=== PATIENT | female | born 1995 | race Two or more races ===

== ENCOUNTER 2025-05-10 18:30 | Inpatient (IN) | payer SELFPAY ==
[2025-05-10 18:33] VITALS: BP 103/55; PULSE 62; RESP 18; TEMP 36.4; O2SAT 97; BMI 39.6
--- NOTE | 2025-05-10 18:46 | XRR_ITS ---
PROCEDURE INFORMATION: Exam: XR Chest Exam date and time: 05/10/2025 6:55 PM Age: 30 years old Clinical indication: Screening exam; Other screening; Additional info: Mhe; Clearance for psych placement TECHNIQUE: Imaging protocol: Radiologic exam of the chest. Views: 1 view. COMPARISON: No relevant prior studies available. FINDINGS: Lungs: Unremarkable. No consolidation. Pleural spaces: Unremarkable. No pleural effusion. No pneumothorax. Heart/Mediastinum: Unremarkable. No cardiomegaly. Bones/joints: Unremarkable. XR/XR chest 1V portable [id number] IMPRESSION: No acute findings.
[2025-05-10 18:54] LABS: Glucose Urine UA Negative (Normal); Nitrate Urine Negative (Negative); Specific Gravity, Urine 1.017 (1.005-1.030)
[2025-05-10 18:59] LABS: Add Urine Microscopic? YES
--- NOTE | 2025-05-10 18:59 | ECG_ITS ---
[facility] Date: 2025-[facility]-11 Pat Name: David Freeman Department: Room: 153 Gender: Female Doorshaker: : 1995 Requested By: Chester Thorpe Order Number: [id number] Montano MD: Rolo Murphy M.D. Measurements Intervals [place] Rate: 54 P: 44 [place]: 152 QRS: 16 QRSD: 94 T: 18 QT: 428 QTc: 408 Interpretive Statements SINUS BRADYCARDIA WITH SINUS ARRHYTHMIA No previous ECG available for comparison Electronically Signed On 05-11-2025 16:50:25 PSS DELIVERY PROFESSIONAL by Rolo Murphy M.D. [email or web address]
[2025-05-10 19:00] VITALS: PULSE 54
[2025-05-10 19:03] LABS: PCP Screen Urine Negative (Negative)
[2025-05-10 19:11] LABS: Hematocrit 30.3 % (36-47); Hemoglobin 8.50 g/dL (11.27-16.99); Mean Corpuscular HGB Conc 28.1 g/dL (30-55); Mean Corpuscular Hemoglobin 20.8 pg (27-33); Mean Corpuscular Volume 74.3 fl (85-98); Nucleated Red Blood Cells % 0 %; Platelet Count 299 10^3/cmm (157-399); Red Blood Count 4.08 10^6/uL (3.85-5.65); White Blood Count 7.23 10^3/uL (3.29-11.43)
[2025-05-10 19:19] LABS: HCG Qualitative Urine. Negative (Negative)
[2025-05-10 19:22] LABS: Alanine Aminotransferase 34 U/L (0-33); Albumin Level 3.7 g/dL (3.5-5.2); Alkaline Phosphatase 94 U/L (35-105); Anion Gap 13.0 (5-19); Aspartate Amino Transferase 42 U/L (0-32); Blood Urea Nitrogen 14 mg/dL (6-20); Calcium 8.8 mg/dL (8.5-10.5); Carbon Dioxide 27 mmol/L (22-29); Chloride 111 mmol/L (98-107); Globulin 2.6 g/dL (1.3-4.6); Glucose 76 mg/dL (65-115); Osmolality Calculated 303 mOsm/kg (285-295); Potassium 4.0 mmol/L (3.5-5.1); Sodium 147 mmol/L (136-145); Total Protein 6.3 g/dL (6.6-8.7)
[2025-05-10 19:23] LABS: Acetaminophen < 5.0 ug/mL (10-30); Alcohol Level < 10 mg/dL (0-10); Salicylate < 0.3 mg/dL (3-10)
[2025-05-10 21:38] VITALS: BP 100/66; PULSE 63; RESP 17; TEMP 36.5; O2SAT 97
--- NOTE | 2025-05-10 21:43 | ED.C_ITS ---
HPI - Psych 2 General: Chief Complaint: Psychiatric Symptoms Stated Complaint: mhe Time Seen by Provider: 05/10/25 18:37 History of Present Illness: 30-[facility]-old [facility] with suicidal ideation, panic attack, and anxiety. Patient reports having a recent anxiety attack and what she describes as a seizure. She was hospitalized for depression approximately two weeks ago at [facility]. Patient denies current active plan to hurt herself today, though acknowledges suicidal ideation. She reports history of self-harm attempts in the past, but nothing recent. Related Data Home Medications ?Medication ?Instructions ?Recorded ?Confirmed aripiprazole 20 mg tablet (Abilify) 20 mg PO DAILY 03/2205/07/25 divalproex 250 mg tablet,delayed 250 mg PO BID 5 05/07/25 release (Depakote) hydroxyzine HCl 25 mg tablet 25 mg PO TID PRN Anxiety 05/07/25 05/07/25 venlafaxine 75 mg capsule,extended 75 mg PO DAILY 04/2805/07/25 release 24 hr (Effexor XR) Physical Exam 2 Const: COMMON NORMALS: no acute distress GENERAL APPEARANCE: cooperative; not ill appearing and not frail appearing HENMT: COMMON NORMALS: normocephalic, atraumatic and Normal external nose present HEAD & SCALP: normocephalic and atraumatic FACE & SINUS: normal facial exam and face symmetric NOSE: Normal external nose present Eye: COMMON NORMALS: Equal, round and reactive pupils present and EOMs intact bilaterally PUPIL: Yes Equal, round and reactive pupils present Neck/C-Spine: GENERAL: Yes trachea midline Chest: CHEST: Yes Symmetrical chest wall rise Resp: COMMON NORMALS: normal respiratory effort, No retractions, No use of accessory muscles and clear to auscultation bilaterally AUSCULTATION: clear to auscultation bilaterally Cardio: COMMON NORMALS: regular rate and regular rhythm RATE: regular rate RHYTHM: regular rhythm GI: COMMON NORMALS: Normal to inspection, nondistended, normoactive bowel sounds present Extremity: COMMON NORMALS: no pedal edema Neuro: DUYEN COMA SCALE: document GCS findings Duyen coma scale eye opening: Spontaneous [place]en coma scale verbal response: Orientated [place] coma scale motor response: Obey commands [place] coma scale total score: 15 S ENSORY EXAM: Yes extremities (intact) Psych: COMMON NORMALS: speech normal SPEECH: Yes normal speech Skin: COMMON NORMALS: no rashes or lesions noted GENERAL SKIN EXAM: no rashes or lesions noted Course 2 Vital Signs: Vital signs: Vital Signs Temperature 97.6 F 05/10/25 18:33 Pulse Rate 62 05/10/25 18:33 Respiratory Rate 18 05/10/25 18:33 Blood Pressure 103/55 05/10/25 18:33 Pulse Oximetry 97 05/10/25 18:33 Oxygen Delivery Me thod Room Air 05/10/25 18:33 MDM - Psych Medical Decision Making Medically the patient is stable. She is suicidal. She will go to the Neuropsych Unit. Psychiatry agrees to admission Lab Data 05/10/25 18:56 05/10/25 18:56 Radiology Impressions Chest X-Ray 05/10/25 18:46 IMPRESSION: No acute findings. Laboratory Results WBC 7.23 10^3/uL (3.29-11.43) 05/10/25 18:56 RBC 4.08 10^6/uL (3.85-5.65) 05/10/25 18:56 Hgb 8.50 g/dL (11.27-16.99) L 05/10/25 18:56 Hct 30.3 % (36-47) L 05/10/25 18:56 MCV 74.3 fl (85-98) L 05/10/25 18:56 MCH 20.8 pg (27-33) L 05/10/25 18:56 MCHC 28.1 g/dL (30-55) L 05/10/25 18:56 RDW 20.4 % (12.1-15.1) H 05/10/25 18:56 Plt Count 299 10^3/cmm (157-399) 05/10/25 18:56 MPV 9.5 fL (7.4-10.4) 05/10/25 18:56 Neut % (Auto) 65.7 % 05/10/25 18:56 Lymph % (Auto) 28.4 % 05/10/25 18:56 [place] % (Auto) 4.0 % 05/10/25 18:56 Eos % (Auto) 1.2 % 05/10/25 18:56 Baso % (Auto) 0.4 % 05/10/25 18:56 Neut # (Auto) 4.75 10^3/uL (1.8-7.7) 05/10/25 18:56 Lymph # (Auto) 2.1 10^3/uL (0.8-4.8) 05/10/25 18:56 [place] # (Auto) 0.3 10^3/uL (0.2-0.9) 05/10/25 18:56 Eos # (Auto) 0.1 10^3/uL (0.0-0.8) 05/10/25 18:56 Baso # (Auto) 0.0 10^3/uL (0.0-0.1) 05/10/25 18:56 Nucleated RBC % (auto) 0 % 05/10/25 18:56 Nucleated RBCs # 0.0 /100WBC 05/10/25 18:56 Sodium 147 mmol/L (136-145) H 05/10/25 18:56 Potassium 4.0 mmol/L (3.5-5.1) 05/10/25 18:56 Chloride 111 mmol/L (98-107) H 05/10/25 18:56 Carbon Dioxide 27 mmol/L (22-29) 05/10/25 18:56 Anion Gap 13.0 (5-19) 05/10/25 18:56 BUN 14 mg/dL (6-20) 05/10/25 18:56 Creatinine 0.8 mg/dL (0.5-0.9) 05/10/25 18:56 GFR Calculation 83.7 mL/min (90-130) L 05/10/25 18:56 Glucose 76 mg/dL (65-115) 05/10/25 18:56 Calculated Osmolality 303 mOsm/kg (285-295) H 05/10/25 18:56 Calcium 8.8 mg/dL (8.5-10.5) 05/10/25 18:56 Total Bilirubin 0.2 mg/dL (0.15-1.2) 05/10/25 18:56 AST 42 U/L (0-32) H 05/10/25 18:56 ALT 34 U/L (0-33) H 05/10/25 18:56 Alkaline Phosphatase 94 U/L (35-105) 05/10/25 18:56 Total Protein 6.3 g/dL (6.6-8.7) L 05/10/25 18:56 Albumin 3.7 g/dL (3.5-5.2) 05/10/25 18:56 Globulin 2.6 g/dL (1.3-4.6) 05/10/25 18:56 HCG, Qual Negative (Negative) 05/10/25 18:45 Urine Color Yellow (Yellow) 05/10/25 18:45 Urine Appearance Clear (CLEAR) 05/10/25 18:45 Urine pH 7.0 (5-7) 05/10/25 18:45 Ur Specific [place] 1.017 (1.005-1.030) 05/10/25 18:45 Urine Protein Negative (Negative) 05/10/25 18:45 Urine Glucose (UA) Negative (Normal) 05/10/25 18:45 Urine Ketones Negative (Negative) 05/10/25 18:45 Urine Blood 2+ (Negative) A 05/10/25 18:45 Urine Nitrate Negative (Negative) 05/10/25 18:45 Urine Bilirubin Negative (Negative) 05/10/25 18:45 Urine Urobilinogen 0.2 mg/dL (Negative) 05/10/25 18:45 Ur Leukocyte Esterase 1+ (Negative) A 05/10/25 18:45 Urine RBC 0-2 /hpf (0-2) 05/10/25 18:45 Urine WBC 21-50 /hpf (0-5) H 05/10/25 18:45 Ur Squamous Epith Cells 0-5 /hpf (0-5) 05/10/25 18:45 Amorphous Sediment Not Reportable 05/10/25 18:45 Urine Bacteria 1+ /hpf (NONE) H 05/10/25 18:45 Hyaline Casts 1.21 /lpf 05/10/25 18:45 Salicylates < 0.3 mg/dL (3-10) L 05/10/25 18:56 Urine Opiates Screen Negative ng/mL (Negative) 05/10/25 18:45 Acetaminophen < 5.0 ug/mL (10-30) L 05/10/25 18:56 Ur Barbiturates Screen Negative ng/mL (Negative) 05/10/25 18:45 Ur Phencyclidine Scrn Negative ng/mL (Negative) 05/10/25 18:45 Ur Amphetamines Screen Negative ng/mL (Negative) 05/10/25 18:45 U Benzodiazepines Scrn Negative ng/mL (Negative) 05/10/25 18:45 Urine Cocaine Screen Negative ng/mL (Negative) 05/10/25 18:45 U Marijuana (THC) Screen Negative ng/mL (Negative) 05/10/25 18:45 Ethyl Alcohol < 10 mg/dL (0-10) 05/10/25 18:56 All radiology interpretation(s) finalized by discharge Discharge Plan Discharge Patient Disposition: Admitted As Inpatient Admit Provider: Johann Carmona Clinical Impression: Suicidal ideation Condition: Stable Coding Level of Care Code ED Fine Grader for Mathew Mcdonald
[2025-05-10 22:00] VITALS: BP 100/66; PULSE 63; RESP 17; TEMP 36.5; O2SAT 97
[2025-05-11 06:00] VITALS: RESP 16
--- NOTE | 2025-05-11 12:43 | PC.NURSE ---
Patient reports that she is not taking any medication due to not being able to afford them. Allergies are verified.
[2025-05-11 12:52] LABS: Respiratory Syncytial Virus Ce NEGATIVE (Negative); SARS-CoV-2 PCR NEGATIVE (Negative)
[2025-05-11 14:00] VITALS: BP 98/62; PULSE 67; RESP 17; TEMP 36.8; O2SAT 98
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
--- NOTE | 2025-05-11 17:58 | PC.NURSE ---
Pt. refused Effexor
--- NOTE | 2025-05-11 18:12 | PC.NURSE ---
Pt. is wanting to leave AMA, is homeless, and has no ride. Pt. was told the Crisis [facility] was already closed for the evening. Pt. says he will go to the [facility]. Signee left message informing Dr. Us of what pt. is wanting to do.
--- NOTE | 2025-05-11 19:37 | PC.NURSE ---
PATIENT REQUEST AT 1830 THIS EVENING, PATIENT VOICED REQUEST TO LEAVE AMA. THE PATIENTS NURSE AT THAT TIME, AZALIA Zapata RN, ALERTED DR GARCIA OF PATIENTS REQUEST WITH NO RESPONSE RECEIVED. THIS NURSE, CALLED DR WIGGINS AT [address]ICATION[address] DR WIGGINS STATED THAT PATIENT ARRIVED TO HOSPITAL WITH SUICIDAL IDEATION, SO SHE NEEDS TO STAY ONE MORE NIGHT AND HE WOULD DISCUSS HER OPTIONS TOMORROW. THAT IF THE PATIENT INSISTED ON LEAVING TONIGHT, THEN HE WOULD PLACE THE PATIENT ON A 96 HOUR HOLD FOR HER SAFETY, WITH THE TEMPERATURES COLD THEY ARE. PATIENT AGREED TO STAY.
[2025-05-11 22:00] VITALS: RESP 16
--- NOTE | 2025-05-11 22:21 | PC.NURSE ---
pt vitals not done, pt resting, vitals will be collected when pt is awake, pt resp 16, nurse aware
[2025-05-12 06:00] VITALS: BP 92/55; PULSE 68; RESP 20; TEMP 36.3; O2SAT 100
--- NOTE | 2025-05-12 07:58 | PC.NURSE ---
Medications reconciled.
[2025-05-12] MEDS: venlafaxine ER (24HR) 75 mg Capsule PO (07:59)
--- NOTE | 2025-05-12 07:59 | PC.NURSE ---
Pt refused AM Abilify PO stating I only take Abilify at night .
[2025-05-12 13:38] VITALS: BP 92/55; PULSE 68; RESP 20; TEMP 36.3; O2SAT 100
[2025-05-12 13:59] VITALS: BP 108/62; PULSE 55; RESP 16; TEMP 36.6; O2SAT 100
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
== END 2025-05-12 14:50 | disposition home or self-care (01) | DRG 883 ==
LOC: ER 20:27 → NP 21:05
PROVIDERS: Admitting Provider Psychiatry & Neurology Psychiatry; Emergency Provider Emergency Medicine; Visit Provider Psychiatry & Neurology Psychiatry
DX: F60.3 Borderline personality disorder (principal); R45.851 Suicidal ideations; Z59.00 Homelessness unspecified; F34.1 Dysthymic disorder; F43.10 Post-traumatic stress disorder, unspecified; F44.5 Conversion disorder with seizures or convulsions
CPT/HCPCS: 36415; 71045; 80053; 80306; 80307; 81001; 81025; 85025; 87077; 87086; 87186; 87637; 93005; 97150; 97165; 99285; J9999

== ENCOUNTER 2025-05-14 00:15 | Emergency (ER) | payer SELFPAY ==
[2025-05-14 00:10] VITALS: BP 117/65; PULSE 57; RESP 17; TEMP 36.9; O2SAT 97
--- NOTE | 2025-05-14 00:20 | ECG_ITS ---
[facility]14 Pat Name: David Freeman Department: Room: Gender: Female New Media Strategist: : 1995 Requested By: Fred Beebe Order Number: [id number] Montano MD: Tenzin Borges M.D. Measurements Intervals Parker Rate: 60 P: 50 PA: 201 QRS: -7 QRSD: 92 T: 17 QT: 434 QTc: 434 Interpretive Statements SINUS RHYTHM Compared to ECG 05/11/2025 11:24:34 Sinus bradycardia no longer present Sinus arrhythmia no longer present Electronically Signed On 05-14-2025 21:39:45 BOX INSPECTOR by Tenzin Borges M.D. [email or web address]
--- NOTE | 2025-05-14 00:22 | ED_ITS ---
HPI - Seizure 2 General: Chief Complaint: Seizure Stated Complaint: possible seizure History of Present Illness: HPI Narrative: Patient is a 30-year-old female with past medical history of PNES, borderline PD, and depression who presents to the ED with seizure-like activity. For about 5 to 10 seconds, friend was concerned that she had generalized shaking while in bed and called EMS. No seizure-like activity for them, no medications given and route. Patient is currently in a [place] [facility], had a recent psychiatric admission here few days ago. She states she is compliant on her Depakote. She complains of right lower tooth pain, still able to eat and drink, no vomiting, no changes in her voice, no fevers, no severe facial swelling has not recently been on antibiotics, has not had any recent dental work. She denies any confusion but has a mild generalized headache currently. Related Data Previous Rx's ?Medication ?Instructions ?Recorded aripiprazole 20 mg tablet (Abilify) 20 mg PO DAILY 30 days #30 tabs 05/12/25 divalproex 250 mg tablet,delayed 250 mg PO BID 30 days #60 tabs 05/12/25 release (Depakote) hydroxyzine HCl 25 mg tablet 25 mg PO TID PRN Anxiety 30 days 05/12/25 #90 tabs venlafaxine 75 mg capsule,extended 75 mg PO DAILY 30 d ays #30 caps 05/12/25 release 24 hr (Effexor XR) chlorhexidine gluconate 0.12 % 15 ml buccal DAILY #473 mL 05/14/25 mouthwash (Peridex) penicillin V potassium 500 mg 500 mg PO Q12H #14 tabs 05/14/25 tablet Allergies Allergy/AdvReac Type Severity Reaction Status Date / Time codeine Allergy ADR-Vomitin Verified 05/11/25 12:02 g lithium Allergy aggression Verified 05/11/25 11:51 Review of Systems 2 General: Reports: 10 or more systems reviewed and unremarkable except in HPI and below ENMT: Reports: dental pain Neuro: Reports: headache(s) and seizure-like activity Physical Exam 2 Narrative: EXAM NARRATIVE: Patient well-appearing, no signs of trauma, afebrile, vital signs stable on arrival. Does not appear postictal, GCS 15, PERRL, EOMI, no nystagmus, 5 out of 5 motor and sensation in all 4 extremities, no tongue biting, no incontinence. Tooth in question is right lower molar, no fluctuance but obvious cavity, no severe facial swelling, no pooling of secretions, airway widely patent, no cervical lymphadenopathy. Breathing comfortably on room air, saturating well, abdomen soft, nontender, nondistended, normal sinus rhythm with no murmurs, no leg swelling. Course 2 Vital Signs: Vital signs: Vital Signs Temperature 98.4 F 05/14/25 00:10 Pulse Rate 58 L 05/14/25 01:35 Respiratory Rate 17 05/14/25 00:10 Blood Pressure 107/66 05/14/25 01:35 Pulse Oximetry 92 05/14/25 01:35 Oxygen Delivery Me thod Room Air 05/14/25 00:58 MDM - Seizure MDM Narrative Medical decision making narrative: -ddx: Seizure, PNES, personality disorder, tension headache, migraine, anxiety, depression, dental cavity, abscess, dehydration, electrolyte abnormality -Patient arrives GCS 15, mildly fatigued but neuro intact and not postictal at this time, vital stable. Was at most 10-second witnessed episode by friend. She is on Depakote and has taken her doses recently. She has a mild headache at this time, also endorses some right lower tooth pain which clinically looks like a cavity, has not had recent dental work, no fevers, facial swelling, difficulty swallowing or breathing, will start her on 7-day course of penicillin and Peridex for this. No further seizure activity while in the ED. Patient improved with Tylenol, her CK was very mildly elevated at 1000 but she did not have any creatinine elevation, she was given a liter of fluids and encouraged further hydration to prevent rhabdo and stressed its importance. She was then deemed stable to be discharged home with instructions to follow-up with a dentist when able for possible extraction, discharged in stable condition. Lab Data 05/14/25 00:29 05/14/25 00:29 Labs: Laboratory Results WBC 7.11 10^3/uL (3.29-11.43) 05/14/25: RBC 4.34 10^6/uL (3.85-5.65) 05/14/25:29 Hgb 8.90 g/dL (11.27-16.99) L 05/14/25: Hct 31.4 % (36-47) L 05/14/25: MCV 72.4 fl (85-98) L 05/14/25: MCH 20.5 pg (27-33) L 05/14/25 MCHC 28.3 g/dL (30-55) L 05/14/25 RDW 20.2 % (12.1-15.1) H 05/14/25 Plt Count 310 10^3/cmm (157-399) 05/14/25: MPV 9.7 fL (7.4-10.4) 05/14/25 Neut % (Auto) 54.7 % 05/14/25: Lymph % (Auto) 39.4 % 05/14/25: [place] % (Auto) 4.5 % 05/14/25 Eos % (Auto) 1.0 % 05/14/25 Baso % (Auto) 0.3 % 05/14/25 Neut # (Auto) 3.89 10^3/uL (1.8-7.7) 05/14/25 Lymph # (Auto) 2.8 10^3/uL (0.8-4.8) 05/14/25: [place] # (Auto) 0.3 10^3/uL (0.2-0.9) 05/14/25 Eos # (Auto) 0.1 10^3/uL (0.0-0.8) 05/14/25 Baso # (Auto) 0.0 10^3/uL (0.0-0.1) 05/14/25: Nucleated RBC % (auto) 0 % 05/14/25 Nucleated RBCs # 0.0 /100WBC 05/14/25 Sodium 145 mmol/L (136-145) 05/14/25: Potassium 3.8 mmol/L (3.5-5.1) 05/14/25 Chloride 107 mmol/L (98-107) 05/14/25 Carbon Dioxide 29 mmol/L (22-29) 05/14/25: Anion Gap 12.8 (5-19) 05/14/25: BUN 11 mg/dL (6-20) 05/14/25: Creatinine 0.8 mg/dL (0.5-0.9) 05/14/25 GFR Calculation 83.7 mL/min (90-130) L 05/14/25: Glucose 85 mg/dL (65-115) 05/14/25: Calculated Osmolality 299 mOsm/kg (285-295) H 05/14/25 Lactic Acid 0.7 mmol/L (0.5-2.2) 05/14/25: Calcium 9.0 mg/dL (8.5-10.5) 05/14/25: Phosphorus 4.1 mg/dL (2.5-4.5) 05/14/25: Magnesium 2.2 mg/dL (1.7-2.3) 05/14/25: Total Bilirubin 0.2 mg/dL (0.15-1.2) 05/14/25: AST 47 U/L (0-32) H 05/14/25: ALT 39 U/L (0-33) H 05/14/25: Alkaline Phosphatase 92 U/L (35-105) 05/14/25: Creatine Kinase 1139 U/L (26-192) H* 05/14/25 00: Total Protein 6.6 g/dL (6.6-8.7) 05/14/25: Albumin 4.1 g/dL (3.5-5.2) 05/14/25: Globulin 2.5 g/dL (1.3-4.6) 05/14/25 00: HCG, Qual Negative (Negative) 05/14/25: No radiology studies performed this visit Discharge Plan Discharge Patient Disposition: Home Clinical Impression: Seizure-like activity, Dental infection Condition: Stable Prescriptions: New chlorhexidine gluconate [Peridex] 0.12 % mouthwash 15 ml buccal DAILY Qty: 473 0RF penicillin V potassium 500 mg tablet 500 mg PO Q12H Qty: 14 0RF No Action venlafaxine [Effexor XR] 75 mg Capsule,Extended Release 24hr 75 mg PO DAILY 30 Days Qty: 30 2RF divalproex [Depakote] 250 mg Tablet,Delayed Release (Dr/Ec) 250 mg PO BID 30 Days Qty: 60 1RF hydroxyzine HCl 25 mg Tablet 25 mg PO TID PRN (Reason: Anxiety) 30 Days Qty: 90 1RF aripiprazole [Abilify] 20 mg Tablet 20 mg PO DAILY 30 Days Qty: 30 1RF Discharge Orders: Discharge ED (Routine); Ordered 05/14/25 Ordered By: Fred Beebe Referrals: Juarez Key MD [Primary Care Provider, [facility]] Discharge Diet: Advance as tolerated Discharge Activity: Resume usual activity Patient Instructions: Opioid Safety, Pain Management, Patient Portal & Jihan Instructions Activity Restrictions/Additional Instructions: You were seen after your seizure, you were evaluated with labs that were ultimately reassuring, your headache improved with Tylenol and fluids and you were started on antibiotics for your tooth infection which possibly lowered your seizure threshold. To treat the infection, take the penicillin 500 mg every 12 hours for a total of 7 days, take this with food if possible. In addition, use the prescription grade mouthwash at least twice a day to help clean and numb the area. Alternate Tylenol 650 mg and ibuprofen 400 mg every 4 hours as needed for pain and fevers, ensure you follow-up with the dentist for further management of this tooth. Do not drive until you follow-up with your neurologist and rediscuss your seizure medications. Return to the ED with recurring seizures that lasts over 2 minutes, severe worsening of your dental pain, a large amount of facial swelling, fevers that do not improve with Tylenol, any other emergent concerns. Print Language: Nepalese Coding Level of Care Code ED Professor In Family Studies for Mathew Mcdonald
[2025-05-14 00:45] LABS: Hematocrit 31.4 % (36-47); Hemoglobin 8.90 g/dL (11.27-16.99); Mean Corpuscular HGB Conc 28.3 g/dL (30-55); Mean Corpuscular Hemoglobin 20.5 pg (27-33); Mean Corpuscular Volume 72.4 fl (85-98); Nucleated Red Blood Cells % 0 %; Platelet Count 310 10^3/cmm (157-399); Red Blood Count 4.34 10^6/uL (3.85-5.65); White Blood Count 7.11 10^3/uL (3.29-11.43)
[2025-05-14 00:52] LABS: HCG, Serum Qual Negative (Negative)
[2025-05-14 00:58] VITALS: BP 101/68; PULSE 63; O2SAT 96
[2025-05-14 01:09] LABS: Alanine Aminotransferase 39 U/L (0-33); Albumin Level 4.1 g/dL (3.5-5.2); Alkaline Phosphatase 92 U/L (35-105); Chloride 107 mmol/L (98-107); Potassium 3.8 mmol/L (3.5-5.1); Sodium 145 mmol/L (136-145)
[2025-05-14 01:10] LABS: Lactic Sepsis W/Reflex 0.7 mmol/L (0.5-2.2)
[2025-05-14 01:25] LABS: Anion Gap 12.8 (5-19); Aspartate Amino Transferase 47 U/L (0-32); Blood Urea Nitrogen 11 mg/dL (6-20); Calcium 9.0 mg/dL (8.5-10.5); Carbon Dioxide 29 mmol/L (22-29); Globulin 2.5 g/dL (1.3-4.6); Glucose 85 mg/dL (65-115); Magnesium 2.2 mg/dL (1.7-2.3); Osmolality Calculated 299 mOsm/kg (285-295); Total Protein 6.6 g/dL (6.6-8.7)
[2025-05-14 01:35] VITALS: BP 107/66; PULSE 58; O2SAT 92
[2025-05-14 03:14] VITALS: BP 117/71; PULSE 53; O2SAT 98
[2025-05-14 03:55] VITALS: BP 102/59; PULSE 52; O2SAT 93
== END 2025-05-14 03:57 | disposition home or self-care (01) ==
PROVIDERS: Emergency Provider Student in an Organized Health Care Education/Training Program; PCP Family Medicine
DX: R56.9 Unspecified convulsions (principal); K04.7 Periapical abscess without sinus
CPT/HCPCS: 80053; 82550; 83605; 83735; 84100; 84703; 85025; 93005; 99284; J7030; J9999

== ENCOUNTER 2025-05-14 22:27 | Inpatient (IN) | payer SELFPAY ==
[2025-05-14 22:37] VITALS: BP 112/58; PULSE 72; RESP 17; TEMP 36.4; O2SAT 99; BMI 39.6
--- NOTE | 2025-05-14 23:20 | ED_ITS ---
HPI - Dizziness 2 General: Chief Complaint: Dizziness Stated Complaint: dizziness Time Seen by Provider: 05/14/25 22:32 History of Present Illness: HPI Narrative: Patient is a 30-year-old female with a past medical history of PNES, depression who originally presented for dizziness and lightheadedness. On my examination, she denies any event and endorses suicidal ideation, takes Effexor and Depakote, has been taking this but states she has had intrusive thoughts, states she has not been alone all day and so could not take any action but has had prior suicidal attempts where she tried to overdose on medications. Denies any wrist cutting, other self-harm at this time. Other than mental health concerns, she currently denies any symptoms. Related Data Previous Rx's ?Medication ?Instructions ?Recorded aripiprazole 20 mg tablet (Abilify) 20 mg PO DAILY 30 days #30 tabs 05/12/25 divalproex 250 mg tablet,delayed 250 mg PO BID 30 days #60 tabs 05/12/25 release (Depakote) hydroxyzine HCl 25 mg tablet 25 mg PO TID PRN Anxiety 30 days 05/12/25 #90 tabs venlafaxine 75 mg capsule,extended 75 mg PO DAILY 30 d ays #30 caps 05/12/25 release 24 hr (Effexor XR) chlorhexidine gluconate 0.12 % 15 ml buccal DAILY #473 mL 05/14/25 mouthwash (Peridex) penicillin V potassium 500 mg 500 mg PO Q12H #14 tabs 05/14/25 tablet Allergies Allergy/AdvReac Type Severity Reaction Status Date / Time codeine Allergy ADR-Vomitin Verified 05/11/25 12:02 g lithium Allergy aggression Verified 05/11/25 11:51 Review of Systems 2 General: Reports: 10 or more systems reviewed and unremarkable except in HPI and below Card: Reports: lightheadedness Psych: Reports: suicidal ideation Physical Exam 2 Narrative: EXAM NARRATIVE: Patient overall well appearing, afebrile, no acute distress, vital stable on arrival. Flat affect, seemingly passive suicidal ideation, does not seem to be responding to internal stimuli at this time. GCS 15, able to answer questions appropriately and follow commands, symmetrically moving all 4 extremities. Anisocoria (baseline). Breathing comfortably on room air, saturating well, abdomen soft, nontender, nondistended, normal sinus rhythm with no murmurs, no leg swelling, good cap refill. Course 2 Vital Signs: Vital signs: Vital Signs Temperature 97.6 F 05/14/25 22:37 Pulse Rate 67 05/15/25 00:11 Respiratory Rate 18 05/15/25 00:11 Blood Pressure 114/73 05/15/25 00:11 Pulse Oximetry 97 05/15/25 00:11 Oxygen Delivery Me thod Room Air 05/15/25 00:11 MDM - Dizziness Medical Decision Making -ddx: Depression, suicidal ideation, PNES, malingering, adjustment disorder, depression - Patient arrives having changed chief complaint on my evaluation, I saw her yesterday for a most likely pseudoseizure, and was ultimately discharged with amoxicillin for a potential dental cavity, states her tooth pain is doing better and has not been able to coal picker the medication yet. She is on Effexor and Depakote, has been taking her normal doses of this, endorses some suicidal ideation, has had prior suicidal attempts in the past, no concerns for self-harm today, no signs of traumatic injury, will get basic screening labs and plan to admit to psychiatry. - Medical clearance labs are reassuring with no evidence of acute ingestion, clinical status remained stable. Slightly elevated CK at 900 which was overall decreased from yesterday, provided p.o. fluids to help with this, no creatinine elevation,, no blood on UA and less concern for rhabdo. Had a mild amount of inflammatory cells in her urine but with no symptoms, no bacteria and no SIRS criteria will not treat this as a cystitis at this time. Patient then admitted to psychiatry for ultimate mental health stabilization, admitted in stable condition. Lab Data 05/14/25 23:21 05/14/25 23:21 Laboratory Results WBC 6.51 10^3/uL (3.29-11.43) 05/14/25 23:21 RBC 4.26 10^6/uL (3.85-5.65) 05/14/25 23:21 Hgb 8.70 g/dL (11.27-16.99) L 05/14/25 23:21 Hct 30.7 % (36-47) L 05/14/25 23:21 MCV 72.1 fl (85-98) L 05/14/25 23:21 MCH 20.4 pg (27-33) L 05/14/25 23:21 MCHC 28.3 g/dL (30-55) L 05/14/25 23:21 RDW 19.9 % (12.1-15.1) H 05/14/25 23:21 Plt Count 282 10^3/cmm (157-399) 05/14/25 23:21 MPV 9.9 fL (7.4-10.4) 05/14/25 23:21 Neut % (Auto) 59.0 % 05/14/25 23:21 Lymph % (Auto) 33.9 % 05/14/25 23:21 Cameron % (Auto) 5.1 % 05/14/25 23:21 Eos % (Auto) 1.4 % 05/14/25 23:21 Baso % (Auto) 0.3 % 05/14/25 23:21 Neut # (Auto) 3.84 10^3/uL (1.8-7.7) 05/14/25 23:21 Lymph # (Auto) 2.2 10^3/uL (0.8-4.8) 05/14/25 23:21 Cameron # (Auto) 0.3 10^3/uL (0.2-0.9) 05/14/25 23:21 Eos # (Auto) 0.1 10^3/uL (0.0-0.8) 05/14/25 23:21 Baso # (Auto) 0.0 10^3/uL (0.0-0.1) 05/14/25 23:21 Nucleated RBC % (auto) 0 % 05/14/25 23:21 Nucleated RBCs # 0.0 /100WBC 05/14/25 23:21 Sodium 145 mmol/L (136-145) 05/14/25 23:21 Potassium 4.0 mmol/L (3.5-5.1) 05/14/25 23:21 Chloride 109 mmol/L (98-107) H 05/14/25 23:21 Carbon Dioxide 29 mmol/L (22-29) 05/14/25 23:21 Anion Gap 11.0 (5-19) 05/14/25 23:21 BUN 11 mg/dL (6-20) 05/14/25 23:21 Creatinine 0.7 mg/dL (0.5-0.9) 05/14/25 23:21 GFR Calculation 97.6 mL/min (90-130) 05/14/25 23:21 Glucose 95 mg/dL (65-115) 05/14/25 23:21 Calculated Osmolality 299 mOsm/kg (285-295) H 05/14/25 23:21 Calcium 9.1 mg/dL (8.5-10.5) 05/14/25 23:21 Total Bilirubin 0.2 mg/dL (0.15-1.2) 05/14/25 23:21 AST 39 U/L (0-32) H 05/14/25 23:21 ALT 31 U/L (0-33) 05/14/25 23:21 Alkaline Phosphatase 82 U/L (35-105) 05/14/25 23:21 Creatine Kinase 896 U/L (26-192) H* 05/14/25 23:21 Total Protein 6.3 g/dL (6.6-8.7) L 05/14/25 23:21 Albumin 3.8 g/dL (3.5-5.2) 05/14/25 23:21 Globulin 2.5 g/dL (1.3-4.6) 05/14/25 23:21 HCG, Qual Negative (Negative) 05/14/25 23: Urine Color Yellow (Yellow) 05/14/25 23:23 Urine Appearance Clear (CLEAR) 05/14/25 23:23 Urine pH 5.5 (5-7) 05/14/25 23:23 Ur Specific Bogart 1.020 (1.005-1.030) 05/14/25 23:23 Urine Protein Negative (Negative) 05/14/25 23:23 Urine Glucose (UA) Negative (Normal) 05/14/25 23: Urine Ketones Negative (Negative) 05/14/25 23: Urine Blood Negative (Negative) 05/14/25 23: Urine Nitrate Negative (Negative) 05/14/25 23:23 Urine Bilirubin Negative (Negative) 05/14/25 23:23 Urine Urobilinogen 0.2 mg/dL (Negative) 05/14/25 23:23 Ur Leukocyte Esterase 1+ (Negative) A 05/14/25 23: Urine RBC 0-2 /hpf (0-2) 12/17/25 23:23 Urine WBC 21-50 /hpf (0-5) H 05/14/25 23:23 Ur Squamous Epith Cells 0-5 /hpf (0-5) 05/14/25 23:23 Amorphous Sediment Not Reportable 05/14/25 23:23 Urine Bacteria Trace /hpf (NONE) 05/14/25 23:23 Hyaline Casts 0.40 /lpf 05/14/25 23:23 Salicylates < 0.3 mg/dL (3-10) L 05/14/25 23:21 Urine Opiates Screen Negative ng/mL (Negative) 05/14/25 23:23 Acetaminophen < 5.0 ug/mL (10-30) L 05/14/25 23:21 Ur Barbiturates Screen Negative ng/mL (Negative) 05/14/25 23:23 Ur Phencyclidine Scrn Negative ng/mL (Negative) 05/14/25 23:23 Ur Amphetamines Screen Negative ng/mL (Negative) 05/14/25 23:23 U Benzodiazepines Scrn Negative ng/mL (Negative) 05/14/25 23:23 Urine Cocaine Screen Negative ng/mL (Negative) 05/14/25 23:23 U Marijuana (THC) Screen Negative ng/mL (Negative) 05/14/25 23:23 Ethyl Alcohol < 10 mg/dL (0-10) 05/14/25 23:21 No radiology studies performed this visit Discharge Plan Discharge Condition: Stable Prescriptions: No Action venlafaxine [Effexor XR] 75 mg Capsule,Extended Release 24hr 75 mg PO DAILY 30 Days Qty: 30 2RF divalproex [Depakote] 250 mg Tablet,Delayed Release (Dr/Ec) 250 mg PO BID 30 Days Qty: 60 1RF hydroxyzine HCl 25 mg Tablet 25 mg PO TID PRN (Reason: Anxiety) 30 Days Qty: 90 1RF aripiprazole [Abilify] 20 mg Tablet 20 mg PO DAILY 30 Days Qty: 30 1RF chlorhexidine gluconate [Peridex] 0.12 % mouthwash 15 ml buccal DAILY Qty: 473 0RF penicillin V potassium 500 mg tablet 500 mg PO Q12H Qty: 14 0RF Referrals: Juarez Key MD [Primary Care Provider, Family Practice] Print Language: Danish Coding Level of Care Code ED Manufacturing Design Engineer for Chg Fwd
--- NOTE | 2025-05-14 23:24 | ECG_ITS ---
Tutor Assignment Test Date: 2025-05-14 Pat Name: David Freeman Department: Room: Gender: Female Silver Steward: : 1995 Requested By: Fred Beebe Order Number: [id number] Charmaine MD: YOLANDE WILSON Measurements Intervals [place] Rate: 66 P: 38 CO: 190 QRS: -15 QRSD: 91 T: 13 QT: 410 QTc: 433 Interpretive Statements SINUS RHYTHM MINIMAL VOLTAGE CRITERIA FOR LVH, CONSIDER NORMAL VARIANT [MEETS CRITERIA IN ONE OF: R(aVL), S(V1), R(V5), R(V5/V6)+S(V1)] Compared to ECG 05/14/2025 00:17:05 No significant changes Electronically Signed On 05-21-2025 20:32:15 ROAD ROLLER OPERATOR by YOLANDE WILSON [email or web address]
[2025-05-14 23:39] LABS: Hematocrit 30.7 % (36-47); Hemoglobin 8.70 g/dL (11.27-16.99); Mean Corpuscular HGB Conc 28.3 g/dL (30-55); Mean Corpuscular Hemoglobin 20.4 pg (27-33); Mean Corpuscular Volume 72.1 fl (85-98); Nucleated Red Blood Cells % 0 %; Platelet Count 282 10^3/cmm (157-399); Red Blood Count 4.26 10^6/uL (3.85-5.65); White Blood Count 6.51 10^3/uL (3.29-11.43)
[2025-05-14 23:45] LABS: HCG, Serum Qual Negative (Negative)
[2025-05-14 23:50] LABS: Alanine Aminotransferase 31 U/L (0-33); Albumin Level 3.8 g/dL (3.5-5.2); Alkaline Phosphatase 82 U/L (35-105); Anion Gap 11.0 (5-19); Aspartate Amino Transferase 39 U/L (0-32); Blood Urea Nitrogen 11 mg/dL (6-20); Calcium 9.1 mg/dL (8.5-10.5); Carbon Dioxide 29 mmol/L (22-29); Chloride 109 mmol/L (98-107); Globulin 2.5 g/dL (1.3-4.6); Glucose 95 mg/dL (65-115); Osmolality Calculated 299 mOsm/kg (285-295); Potassium 4.0 mmol/L (3.5-5.1); Sodium 145 mmol/L (136-145); Total Protein 6.3 g/dL (6.6-8.7)
[2025-05-14 23:51] LABS: Acetaminophen < 5.0 ug/mL (10-30); Alcohol Level < 10 mg/dL (0-10); Salicylate < 0.3 mg/dL (3-10)
[2025-05-14 23:57] LABS: Glucose Urine UA Negative (Normal); Nitrate Urine Negative (Negative); Specific Gravity, Urine 1.020 (1.005-1.030)
[2025-05-15 00:02] LABS: Add Urine Microscopic? YES
[2025-05-15 00:03] LABS: PCP Screen Urine Negative (Negative)
[2025-05-15 00:11] VITALS: BP 114/73; PULSE 67; RESP 18; O2SAT 97
--- NOTE | 2025-05-15 01:47 | PC.NURSE ---
96 Hour Involuntary Hold Patient Rights have been reviewed with the patient and a copy of the same has been provided to her. Die Cast Engineer Crow Paredes was present at bedside during the presentation of Rights.
[2025-05-15 02:10] VITALS: BP 116/70; PULSE 71; O2SAT 98
[2025-05-15 02:21] VITALS: BP 101/58; PULSE 56; RESP 17; TEMP 36.5; O2SAT 99
--- NOTE | 2025-05-15 02:55 | PC.ADMIT ---
[id number] Admission Note: The patient,David Freeman,30 y/o, was given written information regarding hospital policies, unit procedures and contact persons. Patient's smoking status: . Vital Signs - 8 hr 05/14/25 22:37 05/15/25 00:11 05/15/25 02:10 Temperature 97.6 F Pulse Rate 72 67 71 Respiratory Rate 17 18 Blood Pressure 112/58 114/73 116/70 Pulse Oximetry 99 97 98 Oxygen Delivery Method Room Air Room Air 05/15/25 02:18 05/15/25 02:21 Temperature 97.7 F Pulse Rate 56 L Respiratory Rate 17 Blood Pressure 101/58 Pulse Oximetry 99 Oxygen Delivery Method Room Air Room Air No skin issues, pt was calm and cooperative.
--- NOTE | 2025-05-15 06:16 | PC.NURSE ---
vitals vs not collected pt resting in bed with both eyes closed nurse notified resp 16
[2025-05-15] MEDS: venlafaxine ER (24HR) 75 mg Capsule PO (12:16)
[2025-05-15 14:00] VITALS: BP 119/72; PULSE 74; RESP 18; TEMP 36.7; O2SAT 100
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
--- NOTE | 2025-05-15 17:32 | PC.NURSE ---
pt wanting to leave, requesting for this marine underwriter to call dr. madison to let her go home when informed that doctor will be here tomorrow and she will be able to request to go home at that time. pt stated well you better move me to the acute side because I want out of here. pt instructed to keep calm and wait to speak with doctor in the morning is her best chance of leaving before her 96 hour hold is up. pt given zyprexia for agitation and anxiety.
[2025-05-15 20:45] VITALS: BP 102/61; PULSE 64; RESP 18; TEMP 36.4; O2SAT 90
[2025-05-16 06:00] VITALS: RESP 14
--- NOTE | 2025-05-16 06:32 | PC.NURSE ---
pt vitals not done, resp 14, pt asleep in bed, nurse aware
[2025-05-16] MEDS: venlafaxine ER (24HR) 37.5 mg Capsule 112.5 MG PO (07:42)
[2025-05-16 12:43] VITALS: BP 93/55; PULSE 71; RESP 18; O2SAT 98
--- NOTE | 2025-05-16 14:05 | P.NPUPN_ITS ---
Subjective NPU 2 Subjective: 30-year-old trans male with borderline p ersonality disorder, pseudoseizures admitted with suicidal ideation complaints of dizziness. The patient had a brief episode of a staring spell today where he was standing and staring off into space. He did appear to come out of the episode later in the day. Earlier, he had stated that she felt ready to go home to [facility] but also at the same time stated that he wished to go to [place]. He had reported that he had moved around from multiple places before in the past. He had reported that she needed to be better understood regarding his issues and stated that he may like to go to [place] to receive further help as he had previously lost his ability to stay at various shelters or homes over the past several years. He had reported that he continued to use hydroxyzine for helping with anxiety. He was unable to explain why he e had felt anxious here but stated that he frequently struggled with remaining in 1 place for any extended period of time. He had described having previously engaged in self sabotage to often ruin good things in his life. Mental Status Exam 2 MSE Comments: 30 year old trans male who was alert an d oriented to person, place, time, and situation. His gait appeared within normal limits. His hygiene was poor. There was no evidence of any abnormal involuntary motor movements tics or tremors appreciated. His speech was normal in regards to rate rhythm and prosody. His mood was described as depressed. His affect was odd and subdued. His thought process was linear, logical, and goal-directed. His thought content showed no evidence of homicidal ideation. He endorsed suicidal ideation with no active plan. There was no evidence of any delusional thinking. He did not appear to be responding to internal stimuli. His attention span was fair. His insight was limited. His judgment is poor. His impulse control appeared limited. His attention span appeared adequate. His recent and remote memory were grossly intact. Vitals/I&O/Wt Last Vital Signs Temp 97.6 F 05/15/25 20:45 Pulse 71 05/16/25 12:43 Resp 18 05/16/25 12:43 BP 93/55 05/16/25 12:43 Pulse Ox 98 05/16/25 12:43 O2 Del Method Room Air 05/16/25 12:43 Weight last 48 hrs Weight 95.254 kg Data NPU 05/14/25 23:21 05/14/25 23:21 Micro: Microbiology 05/14/25 23:23 Urine Culture - Preliminary Urine,Clean Catch Gram Negative Rods Microbiology 05/14/25 23:23 Urine,Clean Catch Urine Culture - Preliminary Gram Negative Rods A&P Assessment and plan 1. Dysthymia: 2. Suicidal ideation: 3. PTSD (post-traumatic stress disorder): 4. Functional neurological symptom disorder with attacks or seizures: 5. Borderline personality disorder: Plan: 30-year-old trans male admitted with depression with recent discharge from inpatient unit a few days ago with reported history of PTSD currently endorsing suicidal ideation. #1.? Engage patient in individual, milieu and group therapy. #2?? Restart outpatient psychiatric medications. Continue depakote at 500mg bid. Continue Abilify 20mg daily. Increase effexor xr 150mg daily. #3???TO-15 minute checks? #4.?? Will attempt to gather collateral information including previous records. PDMP PDMP Reviewed: Not Reviewed Involuntary Hold Information 2 Hold Status: Legal Status: 96 Hour Hold Date/Time Hold Expires: 05/21/25 Attestations NPU 2 Medical Necessity Statement*: Inpatient hospitalization is medically necessary and deemed to be the clinically appropriate intervention at this time. Medications will be initiated and adjusted accordingly.?? The patient?s likely length of stay is 3-5 days.? Coding Level of Care Code Acute Code for [facility] Diagnoses Dysthymia F34.1 Suicidal ideation R45.851 PTSD (post-traumatic stress disorder) F43.10 Functional neurological symptom disorder with attacks or seizures F44.5 Borderline personality disorder F60.3
--- NOTE | 2025-05-16 14:32 | PC.NURSE ---
Another pt came up to nurses station from group and stated to staff that this pt was having a silent seizure . Pt was assessed and VS were WNL - see chart & pupils were reactive. Pt came out of seizure and was talking to staff / moving. Pt was offered help to room to lay down but pt refused, wanting to remain in group. Dr. Us notified.
[2025-05-16 14:33] VITALS: BP 125/74; PULSE 68; RESP 16; O2SAT 100
[2025-05-16 20:13] VITALS: BP 113/73; PULSE 89; RESP 19; TEMP 36.7; O2SAT 98
--- NOTE | 2025-05-16 22:06 | PC.NURSE ---
193 Behavioral issues escalating, patient keeps summoning nursing with challenging words such as I need to move to the other side for your safety . When asked what is meant, the reply is that I don't feel safe over here like I do on the other side . It is noted that this has been an ongoing difficulty during day time, of which physician is aware. Patient continues to hover near nursing et refuses anti-anxiety medication et when nsg attempts to redirect/ console, it is interrupted by diagreement from patient. Colaboration with charge nurse et physician brings patient to agree to oral medications B52 . 1940 While charge nurse is obtaining order for above, patient slowly,dramatically puts herself to floor, whereas another patient intervenes et assists her to the floor to prevent injury et calls out for help. Staff is already present to assist, patient then begins to dramatically shake her body et argue with staff simultaneously who is witnessing behaviors that I don't fake seizures . Patient begins saying it was just a panic attack , et I panic because I need to move to the other side , et that her eye is bothering her and caused the panic attack . Patient is able to sit up et vital signs obtained, WNL, et then moves to sit upon bench for medications. She then begins to say she won't take any medication, et after further guidance from this nurse, takes them. She asks frequently will taking the medications make her stay here longer, because I want to leav right now and I have a ride and place to go . Charge nurse explains to her the options et reinforces that she is not going anywhere tonight, et she eventually takes snacks et goes into the dayroom to watch TV. Nursing continues to monitor for needs et changes.
[2025-05-17 06:00] VITALS: RESP 16
--- NOTE | 2025-05-17 06:36 | PC.NURSE ---
vs not collected pt sleeping soundly, nurse notified, resp 16
[2025-05-17] MEDS: venlafaxine ER (24HR) 37.5 mg Capsule 112.5 MG PO (07:49)
--- NOTE | 2025-05-17 11:24 | P.NPUPN_ITS ---
Subjective NPU 2 Subjective: 30-year-old trans male with borderline p ersonality disorder, pseudoseizures admitted with suicidal ideation complaints of dizziness. The patient had reported having some episodes of having a seizure that was interrupted by the patient making comments in the midst of 1 of these episodes. He reported that he was feeling better and wished to be placed off of a hold. He stated that she would be okay with going to [facility]. [facility] was contacted and the patient did not have availability until Monday to go there. He reported having continued problems with anxiety. He reported no side effects from the increase in the Effexor XR. The patient had no side effects from his medications. He had minimized any pain in her tooth currently. Mental Status Exam 2 MSE Comments: 30 year old trans male who was alert an d oriented to person, place, time, and situation. His gait appeared within normal limits. His hygiene was poor. There was no evidence of any abnormal involuntary motor movements tics or tremors appreciated. His speech was normal in regards to rate rhythm and prosody. His mood was described as depressed. His affect was odd and subdued. His thought process was linear, logical, and goal-directed. His thought content showed no evidence of homicidal ideation. He denied suicidal ideation with no active plan. There was no evidence of any delusional thinking. He did not appear to be responding to internal stimuli. His attention span was fair. His insight was limited. His judgment is poor. His impulse control appeared limited. His attention span appeared adequate. His recent and remote memory were grossly intact. Vitals/I&O/Wt Last Vital Signs Temp 98.0 F 05/16/25 20:13 Pulse 89 05/16/25 20:13 Resp 16 05/17/25 06:00 BP 113/73 05/16/25 20:13 Pulse Ox 98 05/16/25 20:13 O2 Del Method Room Air 05/16/25 20:13 Data NPU 05/14/25 23:21 05/14/25 23:21 Micro: Microbiology 05/14/25 23:23 Urine Culture - Preliminary Urine,Clean Catch Gram Negative Rods Microbiology 05/14/25 23:23 Urine,Clean Catch Urine Culture - Preliminary Gram Negative Rods A&P Assessment and plan 1. Dysthymia: 2. Suicidal ideation: 3. PTSD (post-traumatic stress disorder): 4. Functional neurological symptom disorder with attacks or seizures: 5. Borderline personality disorder: Plan: 30-year-old trans male admitted with depression with recent discharge from inpatient unit a few days ago with reported history of PTSD currently endorsing suicidal ideation. #1.? Engage patient in individual, milieu and group therapy. #2?? Restart outpatient psychiatric medications. Continue depakote at 500mg bid. Continue Abilify 20mg daily. Continue effexor xr 150mg daily. Urine sensitivity showed positive for Ecoli with resistance to ampicillin. D/C Penicillin and begin Cefdinir 500mg bid x10 days. #3???TO-15 minute checks? #4.?? Will attempt to gather collateral information including previous records. #5 Iron studies and CRP-patient has microcytic anemia. PDMP PDMP Reviewed: Not Reviewed Involuntary Hold Information 2 Hold Status: Legal Status: 96 Hour Hold Date/Time Hold Expires: 05/21/25 Attestations NPU 2 Medical Necessity Statement*: Inpatient hospitalization is medically necessary and deemed to be the clinically appropriate intervention at this time. Medications will be initiated and adjusted accordingly.?? The patient?s likely length of stay is 3-5 days.? Coding Level of Care Code Acute Code for [facility] Fwd Diagnoses Dysthymia F34.1 Suicidal ideation R45.851 PTSD (post-traumatic stress disorder) F43.10 Functional neurological symptom disorder with attacks or seizures F44.5 Borderline personality disorder F60.3
[2025-05-17 12:24] LABS: Iron 18 ug/dL (37-145)
[2025-05-17 13:16] VITALS: BP 101/60; PULSE 78; RESP 18; O2SAT 100
[2025-05-17 22:00] VITALS: RESP 16
--- NOTE | 2025-05-17 22:45 | PC.NURSE ---
vs not colledted, pt sleeping soundly, Nurse notified resp 16
[2025-05-18 06:00] VITALS: RESP 16
--- NOTE | 2025-05-18 06:26 | PC.NURSE ---
vs not colledted, pt sleeping soundly, Nurse notified resp 16
--- NOTE | 2025-05-18 06:30 | PC.NURSE ---
height and weight not done pt sleeping soundly, nurse notified
[2025-05-18] MEDS: venlafaxine ER (24HR) 37.5 mg Capsule 150 MG PO (10:46)
--- NOTE | 2025-05-18 10:53 | PC.NURSE ---
Pt. came to nurses station and smelled badly of BM. Signee informed pt. she may want to go to the BR and check herself that she had an odor. Shower supplies was given to pt.
--- NOTE | 2025-05-18 13:01 | PC.NURSE ---
Pt. was staring at the fire alarm and then reached and started to open it when signee yelled at her to leave that alone. Pt. then walked away and went to her room.
--- NOTE | 2025-05-18 13:45 | P.NPUPN_ITS ---
Subjective NPU 2 Subjective: 30-year-old trans male with borderline p ersonality disorder, pseudoseizures admitted with suicidal ideation complaints of dizziness. The patient had minimized having any problems currently. He had apparently struggled with controlling her bowels that she appeared to defecate herself yesterday. He reported no suicidal thoughts. He had reported that he had been hopeful about going to live at [place] with his adopted mother but stated that he did not have the phone number. He had reported that he wished to go someplace where a person understood him. Mental Status Exam 2 MSE Comments: 30 year old trans male who was pale who was alert and oriented to person, place, time, and situation. His gait appeared within normal limits. His hygiene was limited. There was no evidence of any abnormal involuntary motor movements tics or tremors appreciated. His speech was normal in regards to rate rhythm and prosody. His mood was described as okay. His affect was subdued. His thought process was linear, logical, and goal-directed. His thought content showed no evidence of homicidal ideation. He denied suicidal ideation with no active plan. There was no evidence of any delusional thinking. He did not appear to be responding to internal stimuli. His attention span was fair. His insight was limited. His judgment is poor. His impulse control appeared limited. His attention span appeared adequate. His recent and remote memory were grossly intact. Vitals/I&O/Wt Last Vital Signs Temp 98.0 F 05/16/25 20:13 Pulse 78 05/17/25 13:16 Resp 16 05/18/25 06:00 BP 101/60 05/17/25 13:16 Pulse Ox 100 05/17/25 13:16 O2 Del Method Room Air 05/17/25 13:16 Data NPU 05/14/25 23:21 05/14/25 23:21 Micro: Microbiology 05/14/25 23:23 Urine Culture - Final Urine,Clean Catch Escherichia coli Microbiology 05/14/25 23:23 Urine,Clean Catch Urine Culture - Final Escherichia coli A&P Assessment and plan 1. Dysthymia: 2. Suicidal ideation: 3. PTSD (post-traumatic stress disorder): 4. Functional neurological symptom disorder with attacks or seizures: 5. Borderline personality disorder: Plan: 30-year-old trans male admitted with depression with recent discharge from inpatient unit a few days ago with reported history of PTSD currently endorsing suicidal ideation. #1.? Engage patient in individual, milieu and group therapy. #2?? Restart outpatient psychiatric medications. Continue depakote at 500mg bid. Continue Abilify 20mg daily. Continue effexor xr 150mg daily. Urine sensitivity showed positive for Ecoli with resistance to ampicillin. Continue Cefdinir 500mg bid x10 days. #3???TO-15 minute checks? #4.?? Will attempt to gather collateral information including previous records. #5 CRP normal, Iron low, awaiting Ferritin results. Will start Iron if iron deficiency anemia. PDMP PDMP Reviewed: Not Reviewed Involuntary Hold Information 2 Hold Status: Legal Status: 96 Hour Hold Date/Time Hold Expires: 05/21/25 Attestations NPU 2 Medical Necessity Statement*: Inpatient hospitalization is medically necessary and deemed to be the clinically appropriate intervention at this time. Medications will be initiated and adjusted accordingly.?? The patient?s likely length of stay is 2-3 days.? Coding Level of Care Code Acute Code for g Fwd Diagnoses Dysthymia F34.1 Suicidal ideation R45.851 PTSD (post-traumatic stress disorder) F43.10 Functional neurological symptom disorder with attacks or seizures F44.5 Borderline personality disorder F60.3
--- NOTE | 2025-05-18 13:46 | PC.NURSE ---
Dr. Us gave verbal order for a Ferritin level. Order entered.
[2025-05-18 14:00] VITALS: BP 107/67; PULSE 76; RESP 18; TEMP 37.1; O2SAT 100
[2025-05-18 14:05] LABS: Ferritin 8 ng/mL (15-150)
--- NOTE | 2025-05-18 15:56 | PC.NURSE ---
Pt. requesting homeless alf numbers in the [facility], wanting staff to look up if she has Medicare, and wanting to speech to the multiple times throughout the shift.
[2025-05-18 21:45] VITALS: RESP 16
--- NOTE | 2025-05-18 21:45 | PC.NURSE ---
vs not completed pt sleeping soundly, resp 16 nurse notified
[2025-05-19 06:00] VITALS: RESP 16
--- NOTE | 2025-05-19 06:34 | PC.NURSE ---
vs not completed pt sleeping soundly, resp 16 nurse notified
[2025-05-19] MEDS: venlafaxine ER (24HR) 37.5 mg Capsule 150 MG PO (07:53)
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
[2025-05-19 11:33] VITALS: BP 107/67; PULSE 76; RESP 16; TEMP 37.1; O2SAT 100
[2025-05-19 14:00] VITALS: BP 126/74; PULSE 76; RESP 16; TEMP 36.8; O2SAT 96
== END 2025-05-19 15:14 | disposition home or self-care (01) | DRG 881 ==
LOC: ER 23:20 → NP 05-15 02:01
PROVIDERS: Psychiatry & Neurology Psychiatry; Admitting Provider Psychiatry & Neurology Psychiatry; Emergency Provider Student in an Organized Health Care Education/Training Program; PCP Family Medicine; Visit Provider Psychiatry & Neurology Psychiatry
DX: F32.A Depression, unspecified (principal); R45.851 Suicidal ideations; Z16.11 Resistance to penicillins; F43.10 Post-traumatic stress disorder, unspecified; F60.3 Borderline personality disorder; F44.5 Conversion disorder with seizures or convulsions; F41.9 Anxiety disorder, unspecified; D50.9 Iron deficiency anemia, unspecified; B96.20 Unspecified Escherichia coli [E. coli] as the cause of diseases classified elsewhere
CPT/HCPCS: 36415; 80053; 80306; 80307; 81001; 82550; 82728; 83540; 84703; 85025; 86140; 87077; 87086; 87186; 93005; 97150; 97165; 99285; J7030; J9999; Q0163